=== PATIENT | female | born 1955 | race Caucasian/White ===

== ENCOUNTER 2023-07-25 14:20 | Day surgery (SDC) | payer MEDICARE ==
[2023-07-25] MEDS ORDERED: XYLOCAINE-MPF 1% 5ML SDV IJ ONE (14:21)
--- NOTE | 2023-07-26 10:34 | XRAY ---
2 seconds of fluoroscopy was used in surgery for an attempted right knee injection.
== END 2023-07-25 16:31 | disposition home or self-care (01) ==
LOC: SDC-PAIN 14:20
PROVIDERS: ATTEND Psychiatry & Neurology Pain Medicine
DX: M17.0 Bilateral primary osteoarthritis of knee (principal)
CPT/HCPCS: 20610; 77002; Q9966

== ENCOUNTER 2023-08-15 08:57 | Day surgery (SDC) | payer MEDICARE ==
[2023-08-15] MEDS ORDERED: GELSYN-3 IU ONE (08:58)
[2023-08-15] MEDS ORDERED: DIPRIVAN 200 MG/20 ML IV ONE (10:51)
[2023-08-15] MEDS ORDERED: Lactated Ringers 1,000 ML IV ONE (11:47)
--- NOTE | 2023-08-15 12:38 | XRAY ---
Indication: Left knee injection. Intraoperative fluoroscopy provided for 4 seconds. Single digital spot image submitted for interpretation demonstrates needle tip projecting over left femur intercondylar notch. Small amount of contrast injected for needle tip placement. Correlate with intraoperative findings/report.
--- NOTE | 2023-08-15 12:40 | XRAY ---
Indication: Right knee injection. Intraoperative fluoroscopy provided for 13 seconds. Single digital spot image submitted for interpretation demonstrates needle tip projecting over right femur intercondylar notch. Small amount of contrast injected for needle tip placement. Correlate with intraoperative findings/report.
--- NOTE | 2023-08-15 13:36 | XRAY ---
13 seconds of fluoroscopy was used in surgery for a right intra-articular knee injection.
--- NOTE | 2023-08-15 13:36 | XRAY ---
4 seconds of fluoroscopy was used in surgery for a left intra-articular knee injection.
== END 2023-08-15 11:15 | disposition home or self-care (01) ==
LOC: SDC-PAIN 08:57
PROVIDERS: ATTEND Psychiatry & Neurology Pain Medicine
DX: M17.0 Bilateral primary osteoarthritis of knee (principal); E11.9 Type 2 diabetes mellitus without complications
CPT/HCPCS: 20610; 73560; 77002; 82947; J2704; J7328; Q9966

== ENCOUNTER 2023-08-22 09:47 | Day surgery (SDC) | payer MEDICARE ==
[2023-08-22] MEDS ORDERED: DIPRIVAN 200 MG/20 ML IV ONE (10:47)
--- NOTE | 2023-08-22 11:34 | XRAY ---
Indication: Right knee injection. Intraoperative fluoroscopy provided for 5 seconds. Single digital spot image submitted for interpretation demonstrates needle tip projecting over the right femur intracondylar notch. Small amount of contrast injected for needle tip placement. Correlate with intraoperative findings/report.
--- NOTE | 2023-08-22 11:36 | XRAY ---
Indication: Left knee injection. Intraoperative fluoroscopy provided for 5 seconds. Single digital spot image submitted for interpretation demonstrates needle tip projecting over the left femur intracondylar notch. Small amount of contrast injected for needle tip placement. Correlate with intraoperative findings/report.
--- NOTE | 2023-08-22 13:12 | XRAY ---
5 seconds of fluoroscopy was used in surgery for a right intra-articular knee injection.
--- NOTE | 2023-08-22 13:14 | XRAY ---
5 seconds of fluoroscopy was used in surgery for a left intra-articular knee injection.
[2023-08-22] MEDS ORDERED: Lactated Ringers 1,000 ML IV ONE (15:03)
== END 2023-08-22 11:15 | disposition home or self-care (01) ==
LOC: SDC-PAIN 09:47
PROVIDERS: ATTEND Psychiatry & Neurology Pain Medicine
DX: M17.0 Bilateral primary osteoarthritis of knee (principal); E11.9 Type 2 diabetes mellitus without complications
CPT/HCPCS: 20610; 73560; 77002; 82947; J2704; Q9966

== ENCOUNTER 2023-10-03 08:44 | Day surgery (SDC) | payer MEDICARE ==
[2023-10-03] MEDS ORDERED: Depo-Medrol 40 MG/ML IM ONE (08:45)
[2023-10-03] MEDS ORDERED: BUPIVACAINE 0.5% VIAL IJ ONE (08:45)
[2023-10-03] MEDS ORDERED: DIPRIVAN 200 MG/20 ML IV ONE (10:26)
[2023-10-03] MEDS ORDERED: Versed 2 MG/2 ML Injection ONE (10:29)
[2023-10-03] MEDS ORDERED: Lactated Ringers 1,000 ML IV ONE (10:53)
--- NOTE | 2023-10-03 12:19 | XRAY ---
Indication: Right shoulder and subacromial bursa injection. Intraoperative fluoroscopy provided for 17 seconds. 3 digital spot images submitted for interpretation demonstrates needle tip projecting over the right glenohumeral joint superiorly. Second needle tip subacromial. Small amount of contrast injected for needle tip placement. Correlate with intraoperative findings/report.
--- NOTE | 2023-10-03 13:29 | XRAY ---
17 seconds of fluoroscopy was used in surgery for a right intra-articular shoulder and subacromial bursa injection.
== END 2023-10-03 10:55 ==
LOC: SDC-PAIN 08:44
PROVIDERS: ATTEND Psychiatry & Neurology Pain Medicine
DX: M19.011 Primary osteoarthritis, right shoulder (principal); E11.9 Type 2 diabetes mellitus without complications
CPT/HCPCS: 20610; 73030; 77002; 82947; J2250; J2704; Q9966